=== PATIENT | female | born 1965 | race Caucasian/White ===

== ENCOUNTER → 2017-03-19 | Outpatient (CLI) | payer MEDICARE, OTHER ==
[2015-07-01 13:55] VITALS: BP 130/71
--- NOTE | 2017-03-19 14:55 | RAD ---
DATE: 03/19/2017 EXAM: DIGITAL DIAGNOSTIC BILATERAL HISTORY: Nipple discharge COMPARISON: None. This is a baseline exam This study was interpreted with the benefit of Computerized Aided Detection (CAD). FINDINGS: Breast Density: SCATTERED The breast parenchyma shows scattered fibroglandular densities. Breast parenchyma level B. No dominant mass or suspect group of calcifications is seen in either breast. Occasional small lymph nodes are noted in both axilla. If additional evaluation for nipple discharge is warranted a cholangiogram could be performed. IMPRESSION: Benign findings BI-RADS CATEGORY: 2 BENIGN FINDING(S) RECOMMENDED FOLLOW-UP: 12M 12 MONTH FOLLOW-UP PQRS compliance statement: Patient information was entered into a reminder system with a target due date 03/19/2018 for the next mammogram. Mammography is a sensitive method for finding small breast cancers, but it does not detect them all and is not a substitute for careful clinical examination. A negative mammogram does not negate a clinically suspicious finding and should not result in delay in biopsying a clinically suspicious abnormality. "Our facility is accredited by the [employer] Mammography Program."
== END | disposition home or self-care (01) ==
LOC: MAMMO 13:39
PROVIDERS: ATTEND Family Medicine
DX: N64.52 Nipple discharge (principal); I10 Essential (primary) hypertension; R00.0 Tachycardia, unspecified
CPT/HCPCS: G0204; 77066

== ENCOUNTER 2017-05-12 15:54 | Emergency (ER) | payer MEDICARE, OTHER ==
[~2017-05-12] VITALS: Ht 162.6 cm; Wt 104.3 kg
[2017-05-12 17:46] LABS: BILIRUBIN,URINE NEG (NEG); CLARITY,URINE CLEAR; COLOR,URINE YELLOW; GLUCOSE,URINE NEG (NEG); NITRITE,URINE NEG (NEG); UROBILINOGEN,URINE 0.2 mg/dL (0.2 mg/dL)
--- NOTE | 2017-05-12 17:47 | PHYS DOC ---
Past History Past Medical History: No Pertinent History Past Surgical History: No Surgical History Smoking: Non-smoker Alcohol Use: None Drug Use: None Adult General Chief Complaint Chief Complaint: MULTIPLE COMPLAINTS HPI HPI Patient is a 51 year old female who presents to the emergency department with complaint of stress. Patient was brought to the emergency department by EMS due to aggressive behavior. The patient reportedly was brought back from the [facility] after attending a mental health session. The patient became very upset when her father reportedly was not present at the home. The police department was called for a welfare check as the patient became very upset and verbally aggressive. After speaking with the authorities, the patient asked to be brought to the emergency department as she felt "stressed" and wanted to be checked out. On evaluation, the patient has no complaints at this time. The patient admits that she became very angry when her father was not present. Patient's medical and psychologic history are unknown and patient is a poor historian. The patient does not have any obvious signs of injury and patient denies any thoughts of wanting to hurt herself or anyone else at this time. Review of Systems Review of Systems Constitutional: Denies fever or chills [] Eyes: Denies change in visual acuity, redness, or eye pain [] HENT: Denies nasal congestion or sore throat [] Respiratory: Denies cough or shortness of breath [] Cardiovascular: Denies chest pain or edema [] GI: Denies abdominal pain, nausea, vomiting, bloody stools or diarrhea [] : Denies dysuria or hematuria [] Musculoskeletal: Denies back pain or joint pain [] Integument: Denies rash or skin lesions [] Neurologic: Denies headache, focal weakness or sensory changes [] Allergies Allergies Allergies Coded Allergies Type Severity Reaction Last Updated Verified No Known Drug Allergies 04/21/14 No Physical Exam Physical Exam Constitutional: Alert, obese, afebrile, no acute distress. [] HENT: Normocephalic, atraumatic, bilateral external ears normal, oropharynx moist, no oral exudates, nose normal. [] Eyes: PERRLA, EOMI, conjunctiva normal, no discharge. [] Neck: Normal range of motion, no tenderness, supple, no stridor. [] Cardiovascular:Heart rate regular rhythm, no murmur [] Lungs & Thorax: Bilateral breath sounds clear to auscultation [] Abdomen: Bowel sounds normal, soft, no tenderness, no masses, no pulsatile masses. [] Skin: Warm, dry, no erythema, no rash. [] Back: No tenderness, no CVA tenderness. [] Extremities: No tenderness, no cyanosis, no clubbing, ROM intact, no edema. [] Neurologic: Alert and oriented X 3, normal motor function, normal sensory function, no focal deficits noted. [] Psychologic: Denies suicidal or homicidal ideation, flight of ideas, tangential speech, patient redirectable. [] Current Patient Data Vital Signs Vital Signs Date Time Temp Pulse Resp B/P (MAP) Pulse Ox O2 Delivery O2 Flow Rate FiO2 05/12/17 16:05 98.0 82 18 98 Room Air Lab Results Laboratory Tests Test 05/12/17 17:36 POC Urine HCG, Qualitative hcg negative (Negative) EKG EKG Not performed [] Radiology/Procedures Radiology/Procedures Not performed [] Course & Med Decision Making Course & Med Decision Making Pertinent Labs and Imaging studies reviewed. (See chart for details) The patient was cooperative while in the emergency department. The patient's father was contacted and came to the emergency department. He stated that he was running late at the time the patient was brought back to the home and he apologized for the patient having come to the emergency department. He states that the patient is at her mental baseline and he has no concerns. The patient voices that she feels safe going home with her father at this time. Recommended follow-up with the patient's primary doctor in the next 2-3 days for reevaluation and return to emergency department for any worsening symptoms. Patient's father voiced understanding and in agreement with treatment plan. Dragon Disclaimer Dragon Disclaimer This chart was dictated in whole or in part using Voice Recognition software in a busy, high-work load, and often noisy Emergency Department environment. It may contain unintended and wholly unrecognized errors or omissions. Departure Departure: Impression: Primary Impression: Behavioral disorder Disposition: 01 HOME, SELF-CARE Condition: STABLE Referrals: PEDRO PARDO MD (PCP) Patient Instructions: Stress Additional Instructions: Follow-up with your primary doctor as needed. Return to the emergency department for any worsening symptoms. ZACK MATIAS MD May 12, 2017 17:47
[2017-05-12 17:50] VITALS: BP 136/82
== END 2017-05-12 17:53 | disposition home or self-care (01) ==
LOC: ER 15:54
DX: F91.9 Conduct disorder, unspecified (principal)
CPT/HCPCS: 81003; 81025; 99283

== ENCOUNTER 2017-06-14 14:54 | Emergency (ER) | payer MEDICARE, OTHER ==
[2017-06-14 14:54] VITALS: BP 138/80
--- NOTE | 2017-06-14 17:36 | ED.ADGEN ---
Past History Past Medical History: Anxiety, Depression, Other Past Surgical History: No Surgical History Smoking: Non-smoker Alcohol Use: None Drug Use: None Adult General Chief Complaint Chief Complaint Request for a glass water HPI HPI Patient is a 51-year-old with history of anxiety depression and hallucinations who presented to a local EMS fire station requesting something to drink. The patient was unknown to the EMS workers and the patient was offered a medical screening exam and brought to the emergency department. Patient has a long- standing history of delusions and is seen at [facility] 3 times daily. Patient completed a 4 hour group session earlier today. She is currently upset with her father over remarks regarding her weight loss and she decided to go for a walk when she often requested a class water at a local fire house. Patient denies any other acute symptoms or complaints. No SI or HI. [] Review of Systems Review of Systems ROS as per HPI. Allergies Allergies Allergies Coded Allergies Type Severity Reaction Last Updated Verified No Known Drug Allergies 04/21/14 No Physical Exam Physical Exam Constitutional: Well developed, well nourished, no acute distress, non-toxic appearance. [] HENT: Normocephalic, atraumatic, bilateral external ears normal, oropharynx moist, no oral exudates, nose normal. [] Eyes: PERRLA, EOMI, conjunctiva normal, no discharge. [] Neck: Normal range of motion, no tenderness, supple, no stridor. [] Cardiovascular:Heart rate regular rhythm, no murmur [] Lungs & Thorax: Bilateral breath sounds clear to auscultation [] Abdomen: Bowel sounds normal, soft, no tenderness, no masses, no pulsatile masses. [] Skin: Warm, dry. [] Back: No tenderness, no CVA tenderness. [] Extremities: No tenderness, no cyanosis, no clubbing, ROM intact, no edema. [] Neurologic: Alert and oriented X 2, normal motor function, normal sensory function, no focal deficits noted. [] Psychologic: Affect anxious, hyper-orthodoxy, No SI, HI. [] Current Patient Data Vital Signs Vital Signs Date Time Temp Pulse Resp B/P (MAP) Pulse Ox O2 Delivery O2 Flow Rate FiO2 06/14/17 14:54 98.6 89 20 99 Room Air EKG EKG [] Radiology/Procedures Radiology/Procedures [] Course & Med Decision Making Course & Med Decision Making Pertinent Labs and Imaging studies reviewed. (See chart for details) [[facility] contacted who confirmed she patient's diagnoses which are consistent with current condition. Patient given bottle or water and discharged to father's custody. ] Final Impression Final Impression [1. Encounter for medical screening exam ] Problems: Dragon Disclaimer Dragon Disclaimer This electronic medical record was generated, in whole or in part, using a voice recognition dictation system. AUSTIN POP DO Jun 14, 2017 17:36
== END 2017-06-14 16:00 | disposition home or self-care (01) ==
LOC: ER 14:54
DX: Z00.8 Encounter for other general examination (principal); F41.8 Other specified anxiety disorders
CPT/HCPCS: 99281; 99283

== ENCOUNTER 2019-04-11 11:45 | Emergency (ER) | payer MEDICARE, OTHER ==
[~2019-04-11] VITALS: Ht 162.6 cm; Wt 104.3 kg
--- NOTE | 2019-04-11 12:21 | PHYS DOC ---
Past History Past Medical History: Anxiety, Depression, Other Past Surgical History: No Surgical History Smoking: Non-smoker Alcohol Use: None Drug Use: None Adult General Chief Complaint Chief Complaint: ANKLE PROBLEM HPI HPI Patient is a 53 year old female who presents with right ankle pain. Patient states that she almost fell earlier this morning and felt sudden pain in her right ankle. She thinks that she may have twisted her ankle. States that she had tripped over her pants which caused her to nearly fall. Has not taken any medications for her symptoms. The patient called EMS to come to the emergency Department be evaluated. EMS notes the patient was ambulating independently from her house to the ambulance and bearing full weight on the affected extremity. Patient has history of chronic pain in the right lower extremity and does walk with a cane. States pain is along the inner aspect of the right ankle. Denies falling completely to the ground and denies any other injuries. Review of Systems Review of Systems Constitutional: Denies fever or chills [] Musculoskeletal: Right ankle pain.[] Integument: Denies rash or skin lesions [] Neurologic: Denies headache, focal weakness or sensory changes [] All other systems were reviewed and found to be within normal limits, except as documented in this note. Current Medications Current Medications Current Medications Medications (Trade) Dose Ordered Sig/Fredy Start Time Stop Time Status Last Admin Dose Admin Acetaminophen (Tylenol) 650 mg 1X ONCE 04/11/19 12:15 04/11/19 12:16 UNV Allergies Allergies Allergies Coded Allergies Type Severity Reaction Last Updated Verified No Known Drug Allergies 04/21/14 No Physical Exam Physical Exam Constitutional: Alert, afebrile, disheveled appearance, no acute distress. [] Skin: Warm, dry, no erythema, no rash. [] Extremities: No obvious swelling or deformity of right ankle or lower leg, voluntary guarding of right ankle, displays no tenderness when redirected away from her ankle, range of motion normal, DP and PT pulses 2+ in the right foot. [] Neurologic: Alert and oriented X 3, normal motor function, normal sensory function, no focal deficits noted. [] Current Patient Data Vital Signs Vital Signs Date Time Temp Pulse Resp B/P (MAP) Pulse Ox O2 Delivery O2 Flow Rate FiO2 04/11/19 13:04 98.4 72 16 94 Room Air Lab Results Not performed EKG EKG Not performed[] Radiology/Procedures Radiology/Procedures Not performed[] Course & Med Decision Making Course & Med Decision Making Pertinent Labs and Imaging studies reviewed. (See chart for details) Patient has normal range of motion of the right foot and ankle with normal weightbearing. When patient is watching the examination of her right ankle, she voluntarily guards before full pressure is put on the ankle. When I speak with the patient and apply pressure to the ankle, the patient displays no guarding and no tenderness. Patient is well-known to this emergency department and does have psychiatric history is well-documented. I do not see any obvious external signs of trauma or significant injury. Patient's symptoms may be due to mild sprain. An ankle strap brace was applied to the right ankle. Given Tylenol for pain. Advised to continue Tylenol as needed. Advised to continue ambulation with use of cane and recommended follow-up with primary doctor in 1 week for reevaluation. Advised return to emergency department for any worsening symptoms. Patient was understanding and agreement with treatment plan. Dragon Disclaimer Dragon Disclaimer This electronic medical record was generated, in whole or in part, using a voice recognition dictation system. Departure Departure: Impression: Primary Impression: Right ankle pain Disposition: HOME, SELF-CARE Condition: IMPROVED Referrals: PEDRO PARDO MD (PCP) Patient Instructions: Ankle Pain Additional Instructions: Follow-up with your primary doctor in 1 week for reevaluation. Return to the emergency department for any worsening symptoms. Problem Qualifiers Primary Impression: Right ankle pain Chronicity: acute Qualified Codes: M25.571 - Pain in right ankle and joints of right foot ZACK MATIAS MD Apr 11, 2019 12:21
[2019-04-11] MEDS ORDERED: ACETAMINOPHEN 325 MG TABLET PO ONE (12:30)
[2019-04-11 13:04] VITALS: BP 132/79
== END 2019-04-11 12:40 | disposition home or self-care (01) ==
LOC: ER 11:45
DX: M25.571 Pain in right ankle and joints of right foot (principal); F41.9 Anxiety disorder, unspecified; F32.9 Major depressive disorder, single episode, unspecified; W18.49XA Other slipping, tripping and stumbling without falling, initial encounter; Y93.89 Activity, other specified; Y92.89 Other specified places as the place of occurrence of the external cause; Y99.8 Other external cause status
CPT/HCPCS: 29515; 99283

== ENCOUNTER 2020-11-02 21:03 | Emergency (ER) | payer MEDICARE, OTHER ==
[~2020-11-02] VITALS: Ht 165.1 cm; Wt 100.0 kg
--- NOTE | 2020-11-02 21:05 | PHYS DOC ---
Past History Past Medical History: No Pertinent History Past Surgical History: No Surgical History Smoking: Non-smoker Alcohol Use: None Drug Use: None General Adult HPI: HPI: ".. I was up without my walker.. and I twisted this Lt. knee and ankle again.. I had hurt it before.,.. now the pain really yells.. if I move wrong with this Lt knee and ankle..." Patient is a 55 year old female who presents with above hx and complaints of knee and ankle pain.. Patient has had previous injury to left knee and ankle. Has been instructed to use a walker at all x1 moving about her home or when she is out away from home. Patient distal neurovascular is equal to right leg. Can do straight leg lift with left knee. Cruciate appear to be intact. Marked pain along lateral collateral ligament. Patient has pain in upper ankle and along left inside of malleolus. Foot squeeze is negative. Patient denies other injury at this time. Pt. follows with Dr. Pardo. Review of Systems: Review of Systems: Constitutional: Denies fever or chills Eyes: Denies change in visual acuity HENT: Denies nasal congestion or sore throat Respiratory: Denies cough or shortness of breath Cardiovascular: Denies chest pain or edema GI: Denies abdominal pain, nausea, vomiting, bloody stools or diarrhea : Denies dysuria Musculoskeletal: Complains of left knee and ankle pain Integument: Denies rash Neurologic: Denies headache, focal weakness or sensory changes Endocrine: Denies polyuria or polydipsia Lymphatic: Denies swollen glands Psychiatric: Denies depression or anxiety Family History: Family History: Noncontributory to presentation Current Medications: Current Meds: See nursing for home meds Allergies: Allergies: Allergies Coded Allergies Type Severity Reaction Last Updated Verified No Known Drug Allergies 04/21/14 No Physical Exam: PE: Constitutional: in acute distress, non-toxic appearance. [] HENT: Normocephalic, atraumatic, bilateral external ears normal, oropharynx moist, no oral exudates, nose normal. [] Eyes: PERRLA, EOMI, conjunctiva normal, no discharge. [] Neck: Normal range of motion, no tenderness, supple, no stridor. [] Cardiovascular:Heart rate regular rhythm, no murmur, PMI to the left Lungs & Thorax: Bilateral breath sounds equal apex on auscultation [] Abdomen: Bowel sounds normal, soft, no tenderness, no masses, no pulsatile masses. Obese Skin: Warm, dry, no erythema, no rash. [] Back: No tenderness, no CVA tenderness. [] Extremities: No tenderness, no cyanosis, no clubbing, ROM intact, no edema. [] Except findings in left knee and ankle as per HPI Neurologic: Alert and oriented X 3, limp with ambulation because of pain in left knee and ankle, distal sensation intact, no focal deficits noted. [] Psychologic: Affect anxious, judgement has history of some intellectual delay,, mood normal. [] EKG: EKG: [] Radiology/Procedures: Radiology/Procedures: My interpretation of ankle tibia fib and knee show questionable fracture medial malleolus or displacement or dislocation. Does have findings of degenerative joint disease and spurring. [address] [id number] IMAGING REPORT Signed PATIENT: MIKAL OCONNELL ACCOUNT: [id number] : 1965 LOCATION: ER AGE: 55 SEX: F EXAM STATUS: REG ER ORD. PHYSICIAN: JAN GOOD MD REASON: re- injury - Twisted PROCEDURE: TIBIA FIBULA LEFT EXAM: XR KNEE _4 VIEWS WITH PATELLA_LT, XR LT TIBIA + FIBULA, XR EXAM OF ANKLE_LEFT 3V 11/02/2020 10:40 PM CLINICAL INDICATION: Re-injury, twisted ankle COMPARISON: None FINDINGS: Left ankle: There is an osseous fragment projecting over the lateral malleolus, suspicious for a fracture of the anterolateral edge of the tibial plafond. There is also subtle irregularity of the medial malleolus which could be a possible nondisplaced fracture. There is moderate degenerative joint disease of the tibiotalar joint with mild narrowing, subchondral cysts and sclerosis, and small osteophytes. The talar dome is intact there is circumferential soft tissue swelling about the ankle, greatest medially. Left tibia and fibula: Distal tibia as above. No other fracture. Alignment at the ankle and knee is maintained. No focal soft tissue abnormality. Left knee: No acute fracture. Alignment is normal. Joint spaces are maintained. There are small tricompartmental osteophytes. No joint effusion or soft tissue abnormality. IMPRESSION: 1. Suspected mildly displaced fracture of the anterolateral edge of the tibial plafond (Chaput fracture). 2. Slight irregularity of the medial malleolus. Nondisplaced fracture possible. 3. Consider CT to further evaluate ankle. 4. No other fracture in the tibia or fibula, or knee. Electronically signed by: Samantha Mckeon MD (11/02/2020 11:27 PM) [id number] DICTATED AND SIGNED BY: SAMANTHA MCKEON MD DATE: 11/02/20 [id number] CC: PEDRO PARDO MD; JAN GOOD MD ~MTH0 0 [] Heart Score: Risk Factors: Risk Factors: DM, Current or recent (<one month) smoker, HTN, HLP, family history of CAD, obesity. Risk Scores: Score 0 - 3: 2.5% MACE over next 6 weeks - Discharge Home Score 4 - 6: 20.3% MACE over next 6 weeks - Admit for Clinical Observation Score 7 - 10: 72.7% MACE over next 6 weeks - Early Invasive Strategies Course & Med Decision Making: Course & Med Decision Making Pertinent Labs and Imaging studies reviewed. (See chart for details) Ice, elevation, rest and ice packs as needed. Wear Gustavo wrap. Follow-up with Dr. Yun. Take Tylenol and ibuprofen for pain. For marked pain may take Vicoprofen. Must use walker and crutches when ambulating. Distal neurovascular intact after application Gustavo wrap and splint. Use crutches. Follow up with orthro. [phone]. . Impression: 1. Left knee-ligament strain 2. Ankle sprain 3. DJD- arthritis 4. Ankle Fracture [] Dragon Disclaimer: Dragon Disclaimer: This electronic medical record was generated, in whole or in part, using a voice recognition dictation system. Departure Departure: Referrals: PEDRO PARDO MD (PCP) Scripts Hydrocodone/Ibuprofen (HYDROCODONE-IBUPROFEN 7.5-200 ) 1 Each Tablet 1 TAB PO PRN Q6HRS PRN for PAIN, #30 TAB 0 Refills Prov: JAN GOOD MD 11/02/20 Dragon Disclaimer This chart was dictated in whole or in part using Voice Recognition software in a busy, high-work load, and often noisy Emergency Department environment. It may contain unintended and wholly unrecognized errors or omissions. JAN GOOD MD Nov 02, 2020 21:05
[2020-11-02 21:36] VITALS: BP 139/76
[2020-11-02] MEDS ORDERED: MORPHINE SULFATE 10 MG/ML SYRINGE. SQ ONE (22:00)
[2020-11-02] MEDS ORDERED: KETOROLAC 60 MG/2 ML VIAL. IM ONE (22:00)
[2020-11-02] MEDS ORDERED: HYDR-1179 PO (22:17)
--- NOTE | 2020-11-02 23:30 | RAD ---
EXAM: XR KNEE _4 VIEWS WITH PATELLA_LT, XR LT TIBIA + FIBULA, XR EXAM OF ANKLE_LEFT 3V 11/02/2020 10: 40 PM CLINICAL INDICATION: Re-injury, twisted ankle COMPARISON: None FINDINGS: Left ankle: There is an osseous fragment projecting over the lateral malleolus, suspicious for a frac ture of the anterolateral edge of the tibial plafond. There is also subtle irregularity of the medial malleolus which could be a possible nondisplaced fracture. There is moderate degenerative joint dise ase of the tibiotalar joint with mild narrowing, subchondral cysts and sclerosis, and small osteophyt es. The talar dome is intact there is circumferential soft tissue swelling about the ankle, greatest medially. Left tibia and fibula: Distal tibia as above. No other fracture. Alignment at the ankle and knee is m aintained. No focal soft tissue abnormality. Left knee: No acute fracture. Alignment is normal. Joint spaces are maintained. There are small trico mpartmental osteophytes. No joint effusion or soft tissue abnormality. IMPRESSION: 1. Suspected mildly displaced fracture of the anterolateral edge of the tibial plafond (Chaput fractu re). 2. Slight irregularity of the medial malleolus. Nondisplaced fracture possible. 3. Consider CT to further evaluate ankle. 4. No other fracture in the tibia or fibula, or knee. Electronically signed by: Samantha Mckeon MD (11/02/2020 11:27 PM) [id number]
== END 2020-11-03 00:15 | disposition home or self-care (01) ==
LOC: ER 21:03
DX: S82.52XA Displaced fracture of medial malleolus of left tibia, initial encounter for closed fracture (principal); S93.402A Sprain of unspecified ligament of left ankle, initial encounter; M19.90 Unspecified osteoarthritis, unspecified site; X50.9XXA Other and unspecified overexertion or strenuous movements or postures, initial encounter; Y93.89 Activity, other specified; Y92.89 Other specified places as the place of occurrence of the external cause; Y99.8 Other external cause status
CPT/HCPCS: 29515; 73564; 73590; 73610; 96372; 99284; J1885; J2270

== ENCOUNTER 2021-03-08 14:20 | Emergency (ER) | payer MEDICARE, OTHER ==
[~2021-03-08] VITALS: Ht 165.1 cm; Wt 106.8 kg
[~2021-03-08 14:20] MED LIST: HYDR-1179 PO
[2021-03-08 16:17] LABS: BILIRUBIN,URINE NEG (NEG); CLARITY,URINE HAZY; COLOR,URINE YELLOW; GLUCOSE,URINE 100 mg/dL (NEG); NITRITE,URINE NEG (NEG)
[2021-03-08 16:21] LABS: BACTERIA,URINE FEW /HPF (0-FEW); SQUAMOUS EPITHELIAL CELL,UR FEW /LPF
[2021-03-08] MEDS ORDERED: PHEN-318 PO (17:00)
[2021-03-08] MEDS ORDERED: SULF1TAB24 PO (17:00)
--- NOTE | 2021-03-08 17:01 | PHYS DOC ---
Past History Past Medical History: UTI Past Surgical History: No Surgical History Smoking: Non-smoker Alcohol Use: None Drug Use: None General Adult EDM: Chief Complaint: ABDOMINAL PAIN HPI: HPI: Patient is a 55-year-old female presents with dysuria and frequency symptoms that started today. Patient denies flank pain, fevers. Denies abdominal pain. Patient states pain is worse with urination. Patient has a history of UTIs. Review of Systems: Review of Systems: Constitutional: Denies fever or chills Eyes: Denies change in visual acuity HENT: Denies nasal congestion or sore throat Respiratory: Denies cough or shortness of breath Cardiovascular: Denies chest pain or edema GI: Denies abdominal pain, nausea, vomiting, bloody stools or diarrhea : Reports dysuria and frequency Musculoskeletal: Denies back pain or joint pain Integument: Denies rash Neurologic: Denies headache, focal weakness or sensory changes Endocrine: Denies polyuria or polydipsia Lymphatic: Denies swollen glands Psychiatric: Denies depression or anxiety Allergies: Allergies: Allergies Coded Allergies Type Severity Reaction Last Updated Verified No Known Drug Allergies 11/02/20 No Physical Exam: PE: Constitutional: Well developed, well nourished, no acute distress, non-toxic appearance. [] HENT: Normocephalic, atraumatic, bilateral external ears normal, oropharynx moist, no oral exudates, nose normal. [] Eyes: PERRLA, EOMI, conjunctiva normal, no discharge. [] Neck: Normal range of motion, no tenderness, supple, no stridor. [] Cardiovascular:Heart rate regular rhythm, no murmur [] Lungs & Thorax: Bilateral breath sounds clear to auscultation [] Abdomen: Bowel sounds normal, soft, no tenderness, no masses, no pulsatile masses. [] Skin: Warm, dry, no erythema, no rash. [] Back: No tenderness, no CVA tenderness. [] Extremities: No tenderness, no cyanosis, no clubbing, ROM intact, no edema. [] Neurologic: Alert and oriented X 3, normal motor function, normal sensory fun ction, no focal deficits noted. [] Psychologic: Affect normal, judgement normal, mood normal. [] Current Patient Data: Labs: Laboratory Tests Test 03/08/21 15:15 Urine Collection Type Unknown Urine Color Yellow Urine Clarity Hazy Urine pH 7.0 Urine Specific [place] 1.020 Urine Protein 30 mg/dl (NEG-TRACE) Urine Glucose (UA) 100 mg/dL (NEG) Urine Ketones (Stick) Trace mg/dL (NEG) Urine Blood Small (NEG) Urine Nitrite Neg (NEG) Urine Bilirubin Neg (NEG) Urine Urobilinogen Dipstick 1.0 mg/dL (0.2 mg/dL) Urine Leukocyte Esterase Small (NEG) Urine RBC 1-2 /HPF (0-2) Urine WBC 5-10 /HPF (0-4) Urine Squamous Epithelial Cells Few /LPF Urine Bacteria Few /HPF (0-FEW) Vital Signs: Vital Signs Date Time Temp Pulse Resp B/P (MAP) Pulse Ox O2 Delivery O2 Flow Rate FiO2 03/08/21 15:00 100.4 106 20 141/86 (104) 97 Room Air EKG: EKG: [] Radiology/Procedures: Radiology/Procedures: [] Heart Score: C/O Chest Pain: No Risk Factors: Risk Factors: DM, Current or recent (<one month) smoker, HTN, HLP, family history of CAD, obesity. Risk Scores: Score 0 - 3: 2.5% MACE over next 6 weeks - Discharge Home Score 4 - 6: 20.3% MACE over next 6 weeks - Admit for Clinical Observation Score 7 - 10: 72.7% MACE over next 6 weeks - Early Invasive Strategies Course & Med Decision Making: Course & Med Decision Making Pertinent Labs and Imaging studies reviewed. (See chart for details) [] 55-year-old female presents with dysuria and frequency. Patient given prescription for Bactrim and prescription for Pyridium to help with symptoms. Patient's encouraged to push fluids. Dragon Disclaimer: Dragon Disclaimer: This electronic medical record was generated, in whole or in part, using a voice recognition dictation system. Departure Departure: Impression: Primary Impression: UTI (urinary tract infection) Qualified Codes: N30.00 - Acute cystitis without hematuria Disposition: HOME / SELF CARE / HOMELESS Condition: STABLE Referrals: PEDRO PARDO MD (PCP) Patient Instructions: Urinary Tract Infection Additional Instructions: You were seen in the emergency room for burning with urination and also frequency. I am sending you home with a prescription for Bactrim to help with your infection. Writing a prescription for Pyridium which will help with the symptoms. Try and increase your water intake. Please return to the emergency room with worsening symptoms or concerns. EMERGENCY DEPARTMENT GENERAL DISCHARGE INSTRUCTIONS Thank you for coming to [facility] (ED) today and trusting us with you care. We trust that you had a positivie experience in our Emergency Department. If you wish to speak to the department management, you may call the director at [phone]. YOUR FOLLOW UP INSTRUCTIONS ARE FOLLOWS: 1. Do you have a private Doctor? If you do not have a private doctor, please ask for a resource list of physicians or clinics that may be able to assist you with follow up care. 2. The Emergency Physician has interpreted your x-rays. The X-Ray specialist will also review them. If there is a change in the findings, you will be notified in 48 hours when at all possible. 3. A lab test or culture has been done, your results will be reviewed and you will be notified if you need a change in treatment. ADDITIONAL INSTRUCTIONS AND INFORMATION: 1. Your care today has been supervised by a physician who is specially trained in emergency care. Many problems require more than one evaluation for a complete diagnosis and treatment. We recommend that you schedule your follow up appointment as recommended to ensure complete treatment of you illness or injury. If you are unable to obtain follow up care and continue to have a problem, or if your condition worsens, we recommend that you return to the ED. 2. We are not able to safely determine your condition over the phone nor are we able to give sound medical advice over the phone. For these safety reasons, if you call for medical advice we will ask you to come to the ED for further evaluation. 3. If you have any questions regarding these discharge instructions please call the ED at [phone]. SAFETY INFORMATION: In the interest of safety, wellness, and injury prevention; we encourage you to wear your sealbelt, if you smoke; quite smoking, and we encourage family to use a protective helmet for bicycling and other sporting events that present an increased risk for head injury. IF YOUR SYMPTOMS WORSEN OR NEW SYMPTOMS DEVELOP, OR YOU HAVE CONCERNS ABOUT YOUR CONDITION; OR IF YOUR CONDITION WORSENS WHILE YOU ARE WAITING FOR YOUR FOLLOW UP APPOINTMENT; EITHER CONTACT YOUR PRIMARY CARE DOCTOR, THE PHYSICIAN WHOSE NAME AND NUMBER YOU WERE GIVEN, OR RETURN TO THE ED IMMEDIATELY. Scripts Phenazopyridine Hcl (PYRIDIUM) 200 Mg Tablet 1 TAB PO TID for urinary discomfort for 3 Days, #9 TAB 0 Refills Prov: MORENO CAMPO APRN 03/08/21 Sulfamethoxazole/Trimethoprim (BACTRIM DS TABLET) 1 Each Tablet 1 EACH PO BID for uti for 3 Days, #6 TAB Prov: MORENO CAMPO APRN 03/08/21 MORENO CAMPO APRN March 08, 2021 17:01
[2021-03-08 17:20] VITALS: BP 136/88
== END 2021-03-08 17:25 | disposition home or self-care (01) ==
LOC: ER 14:20
DX: N39.0 Urinary tract infection, site not specified (principal)
CPT/HCPCS: 81001; 87086; 99283-25

== ENCOUNTER 2021-03-30 07:31 | Emergency (ER) | payer MEDICARE, OTHER ==
[~2021-03-30] VITALS: Ht 165.1 cm; Wt 108.9 kg
[2021-03-30 07:31] VITALS: BP 129/82
[~2021-03-30 07:31] MED LIST changes: +PHEN-318 PO; +SULF1TAB24 PO
[2021-03-30] MEDS ORDERED: SULF1TAB24 PO (08:26)
--- NOTE | 2021-03-30 08:26 | PHYS DOC ---
Past History Past Medical History: UTI Past Surgical History: No Surgical History Smoking: Non-smoker Alcohol Use: None Drug Use: None Adult General Chief Complaint Chief Complaint: RECTAL BLEED HPI HPI Patient is a [age] year old [sex] who presents with [] Review of Systems Review of Systems Fourteen body systems of review of systems have been reviewed. See HPI for pertinent positives and negative responses, other jackson all other systems are negative, non-pertinent or non-contributory Allergies Allergies Allergies Coded Allergies Type Severity Reaction Last Updated Verified No Known Drug Allergies 11/02/20 No Physical Exam Physical Exam Constitutional: Well developed, well nourished, no acute distress, non-toxic appearance. HENT: Normocephalic, atraumatic, bilateral external ears normal, oropharynx moist, no oral exudates, nose normal. Eyes: PERRLA, EOMI, conjunctiva normal, no discharge. Neck: Normal range of motion, no tenderness, supple, no stridor. Cardiovascular: Heart rate regular, sinus rhythm, no murmurs rubs or gallops Lungs & Thorax: Bilateral breath sounds clear to auscultation Abdomen: Bowel sounds normal, soft, no tenderness, no masses, no pulsatile masses. Nonsurgical abdomen, no peritoneal signs Skin: Warm, dry, no erythema, no rash. Back: No tenderness, no CVA tenderness. Extremities: No tenderness, no cyanosis, no clubbing, ROM intact, no edema. Neurologic: Alert and oriented X 3, grossly normal motor & sensory function, no focal deficits noted. Psychologic: Affect normal, judgement normal, mood normal. Current Patient Data Vital Signs Vital Signs Date Time Temp Pulse Resp B/P (MAP) Pulse Ox O2 Delivery O2 Flow Rate FiO2 03/30/21 07:31 98.7 92 16 129/82 (98) 99 Room Air Lab Results Current Medications Medications (Trade) Dose Ordered Sig/Fredy Route PRN Reason Start Time Stop Time Status Last Admin Dose Admin Trimethoprim/ Sulfamethoxazole (Bactrim Ds) 1 tab 1X ONCE PO 03/30/21 08:30 03/30/21 08:32 DC 03/30/21 08:35 Trimethoprim/ Sulfamethoxazole (Bactrim Ds) 1 tab STK-MED ONCE PO 03/30/21 08:32 03/30/21 08:32 DC EKG EKG [] Radiology/Procedures Radiology/Procedures [] Heart Score Risk Factors: Risk Factors: DM, Current or recent (<one month) smoker, HTN, HLP, family history of CAD, obesity. Risk Scores: Risk Factors: DM, Current or recent (<one month) smoker, HTN, HLP, family history of CAD, obesity. Course & Med Decision Making Course & Med Decision Making Pertinent Labs and Imaging studies reviewed. (See chart for details) [] Dragon Disclaimer Dragon Disclaimer This electronic medical record was generated, in whole or in part, using a voice recognition dictation system. Departure Departure: Impression: Primary Impression: Abscess and cellulitis of gluteal region Disposition: HOME / SELF CARE / HOMELESS Condition: STABLE Referrals: PEDRO PARDO MD (PCP) Patient Instructions: Abscess, Care After Additional Instructions: You were evaluated in the Emergency Department for an abscess. Your abscess was incised and drained in the Emergency Department. You should change the dressing every 24 hours. Please keep the areas surrounding the abscess clean and dry. Take the antibiotics prescribed to you in full as directed. As discussed, please contact your primary care physician first thing Wednesday morning to review ER visit today and need for close outpatient follow-up for repeat evaluation. Return to the Emergency Department if you experience worsening pain, persistent fevers greater than 100.4, an increase in area of redness, increased tenderness/warmth around the abscess, foul smelling discharge from the abscess, or any other concerning symptoms. Scripts Sulfamethoxazole/Trimethoprim (BACTRIM DS TABLET) 1 Each Tablet 1 TAB PO BID for ABSCESS for 5 Days, #10 TAB 0 Refills Prov: MARIO ASHRAF DO 03/30/21 MARIO ASHRAF DO Mar 30, 2021 08:26
[2021-03-30] MEDS ORDERED: SMZ/TMP 800/160MG TABLET. PO ONE ×2 (08:30→08:32)
== END 2021-03-30 08:40 | disposition home or self-care (01) ==
LOC: ER 07:31
DX: L02.31 Cutaneous abscess of buttock (principal); L03.317 Cellulitis of buttock; Z87.440 Personal history of urinary (tract) infections
CPT/HCPCS: 99283

== ENCOUNTER 2021-07-27 10:21 | Emergency (ER) | payer MEDICARE, OTHER ==
[~2021-07-27] VITALS: Ht 165.1 cm; Wt 119.5 kg
--- NOTE | 2021-07-27 11:42 | PHYS DOC ---
Past History Past Medical History: UTI Past Surgical History: No Surgical History Smoking: Non-smoker Alcohol Use: None Drug Use: None General Adult EDM: Chief Complaint: MECHANICAL FALL HPI: HPI: Patient is a 56-year-old female who presents after a fall. Patient states "I fell down on my knees and I have had pain on both knees". Denies hitting head or loss of consciousness. No other complaints. Denies take anything for pain prior to arrival. Review of Systems: Review of Systems: ROS At least 10 ROS systems have been reviewed and are negative except as documented in the HPI. General: Negative except as outlined in HPI above. Skin: Negative except as outlined in HPI above. HEENT: Negative except as outlined in HPI above. Neck: Negative except as outlined in HPI above. Respiratory: Negative except as outlined in HPI above.. Cardiovascular: Negative except as outlined in HPI above. Abdomen: Negative except as outlined in HPI above. : Negative except as outlined in HPI above. Back/MSK: Negative except as outlined in HPI above. Neuro: Negative except as outlined in HPI above. Psych: Negative except as outlined in HPI above. Allergies: Allergies: Allergies Coded Allergies Type Severity Reaction Last Updated Verified No Known Drug Allergies 11/02/20 No Physical Exam: PE: Constitutional: Well developed, well nourished, no acute distress, non-toxic appearance. [] HENT: Normocephalic, atraumatic, bilateral external ears normal, oropharynx moist, no oral exudates, nose normal. [] Eyes: PERRLA, EOMI, conjunctiva normal, no discharge. [] Neck: Normal range of motion, no tenderness, supple, no stridor. [] Cardiovascular:Heart rate regular rhythm, no murmur [] Lungs & Thorax: Bilateral breath sounds clear to auscultation [] Abdomen: Bowel sounds normal, soft, no tenderness, no masses, no pulsatile masses. [] Skin: Warm, dry, no erythema, no rash. [] Back: No tenderness, no CVA tenderness. [] Extremities: Bilateral knee tenderness, no cyanosis, no clubbing, ROM intact, no edema. [] Neurologic: Alert and oriented X 3, normal motor function, normal sensory function, no focal deficits noted. [] Psychologic: Affect normal, judgement normal, mood normal. [] Current Patient Data: Labs: Laboratory Tests Test 07/27/21 11:20 POC Urine HCG, Qualitative hcg negative (Negative) Vital Signs: Vital Signs Date Time Temp Pulse Resp B/P (MAP) Pulse Ox O2 Delivery O2 Flow Rate FiO2 07/27/21 10:54 98.2 108 16 150/77 (101) 99 EKG: EKG: [] Radiology/Procedures: Radiology/Procedures: [] EXAM: Bilateral knees, 3 views. HISTORY: Fall. COMPARISON: 11/02/2020 FINDINGS: 3 views of both knees are obtained. There is mild bilateral proximal internal spurring. There is a small left knee joint loose body. There may be a small right knee effusion, difficult to confirm given oblique lateral positioning. IMPRESSION: 1. Mild tricompartmental osteoarthritis of both knees with possible small right knee effusion and left knee joint loose body. 2. No acute osseous finding. Electronically signed by: Amy Banerjee MD (07/27/2021 12:20 PM) [id number] Heart Score: C/O Chest Pain: No Risk Factors: Risk Factors: DM, Current or recent (<one month) smoker, HTN, HLP, family history of CAD, obesity. Risk Scores: Score 0 - 3: 2.5% MACE over next 6 weeks - Discharge Home Score 4 - 6: 20.3% MACE over next 6 weeks - Admit for Clinical Observation Score 7 - 10: 72.7% MACE over next 6 weeks - Early Invasive Strategies Course & Med Decision Making: Course & Med Decision Making Pertinent Labs and Imaging studies reviewed. (See chart for details) [] 56-year-old female presents after a fall. Patient states that she has pain to bilateral knees. Bilateral knee x-rays ordered to rule out fracture. 600 mg of Motrin given for pain. UA ordered to rule out UTI. Urine negative. UA is negative for infection. Bilateral knee x-rays negative for fracture. Patient given rice instructions. Advised patient to take Motrin and Tylenol at home for discomfort. Follow-up with PCP in the next 2 to 3 days. [place] Disclaimer: Paige Disclaimer: This electronic medical record was generated, in whole or in part, using a voice recognition dictation system. Departure Departure: Impression: Primary Impression: Knee pain, bilateral Qualified Codes: M25.561 - Pain in right knee; M25.562 - Pain in left knee Additional Impression: Fall Qualified Codes: W19.XXXA - Unspecified fall, initial encounter Disposition: HOME / SELF CARE / HOMELESS Condition: STABLE Referrals: PEDRO PARDO MD (PCP) Patient Instructions: Knee Pain, [id number], RICE - Routine Care for Injuries, Flaz-oc-Cula Additional Instructions: You were seen in the emergency room for bilateral knee pain after a fall. X- rays were negative for fracture. Rest, use ice, elevate to help with pain. Ibuprofen and Tylenol at home. Follow-up with PCP in the next 2 to 3 days if pain continues. Return to the emergency room with worsening symptoms or concerns EMERGENCY DEPARTMENT GENERAL DISCHARGE INSTRUCTIONS Thank you for coming to [facility] (ED) today and trusting us with you care. We trust that you had a positivie experience in our Emergency Department. If you wish to speak to the department management, you may call the director at [phone]. YOUR FOLLOW UP INSTRUCTIONS ARE FOLLOWS: 1. Do you have a private Doctor? If you do not have a private doctor, please ask for a resource list of physicians or clinics that may be able to assist you with follow up care. 2. The Emergency Physician has interpreted your x-rays. The X-Ray specialist will also review them. If there is a change in the findings, you will be notified in 48 hours when at all possible. 3. A lab test or culture has been done, your results will be reviewed and you w ill be notified if you need a change in treatment. ADDITIONAL INSTRUCTIONS AND INFORMATION: 1. Your care today has been supervised by a physician who is specially trained in emergency care. Many problems require more than one evaluation for a complete diagnosis and treatment. We recommend that you schedule your follow up appointment as recommended to ensure complete treatment of you illness or injury. If you are unable to obtain follow up care and continue to have a problem, or if your condition worsens, we recommend that you return to the ED. 2. We are not able to safely determine your condition over the phone nor are we able to give sound medical advice over the phone. For these safety reasons, if you call for medical advice we will ask you to come to the ED for further evaluation. 3. If you have any questions regarding these discharge instructions please call the ED at [phone]. SAFETY INFORMATION: In the interest of safety, wellness, and injury prevention; we encourage you to wear your sealbelt, if you smoke; quite smoking, and we encourage family to use a protective helmet for bicycling and other sporting events that present an increased risk for head injury. IF YOUR SYMPTOMS WORSEN OR NEW SYMPTOMS DEVELOP, OR YOU HAVE CONCERNS ABOUT YOUR CONDITION; OR IF YOUR CONDITION WORSENS WHILE YOU ARE WAITING FOR YOUR FOLLOW UP APPOINTMENT; EITHER CONTACT YOUR PRIMARY CARE DOCTOR, THE PHYSICIAN WHOSE NAME AND NUMBER YOU WERE GIVEN, OR RETURN TO THE ED IMMEDIATELY. MORENO CAMPO APRN Jul 27, 2021 11:42
[2021-07-27] MEDS ORDERED: IBUPROFEN 600 MG TABLET. PO ONE (11:45)
--- NOTE | 2021-07-27 12:22 | RAD ---
EXAM: Bilateral knees, 3 views. HISTORY: Fall. COMPARISON: 11/02/2020 FINDINGS: 3 views of both knees are obtained. There is mild bilateral proximal internal spurring. The re is a small left knee joint loose body. There may be a small right knee effusion, difficult to conf irm given oblique lateral positioning. IMPRESSION: 1. Mild tricompartmental osteoarthritis of both knees with possible small right knee effusion and lef t knee joint loose body. 2. No acute osseous finding. Electronically signed by: Amy Banerjee MD (07/27/2021 12:20 PM) [id number]
[2021-07-27 12:56] LABS: BILIRUBIN,URINE NEG (NEG); CLARITY,URINE CLEAR; COLOR,URINE YELLOW; GLUCOSE,URINE >=1000 mg/dL (NEG)
[2021-07-27 12:57] LABS: BACTERIA,URINE 0 /HPF (0-FEW); NITRITE,URINE NEG (NEG); SQUAMOUS EPITHELIAL CELL,UR FEW /LPF; UROBILINOGEN,URINE 0.2 mg/dL (0.2 mg/dL)
[2021-07-27 13:55] VITALS: BP 137/80
== END 2021-07-27 13:55 | disposition home or self-care (01) ==
LOC: ER 10:21
DX: M25.561 Pain in right knee (principal); M25.562 Pain in left knee; W19.XXXA Unspecified fall, initial encounter; Y93.89 Activity, other specified; Y92.89 Other specified places as the place of occurrence of the external cause; Y99.8 Other external cause status
CPT/HCPCS: 81001; 81025; 99284; 73564-50

== ENCOUNTER 2021-09-03 17:35 | Emergency (ER) | payer MEDICARE, OTHER ==
[~2021-09-03] VITALS: Ht 165.1 cm; Wt 119.5 kg
--- NOTE | 2021-09-03 18:30 | PHYS DOC ---
Past History Past Medical History: UTI Past Surgical History: No Surgical History Smoking: Non-smoker Alcohol Use: None Drug Use: None Adult General HPI HPI Patient is a 56-year-old female not on any anticoagulation presents after a fall that she sustained at home 2 days ago, tripping and falling in her house and landing on her right side/right knee. States she is having some pain up around her right shoulder, right knee and right ankle, 6 out of 10, dull and achy in nature with no radiation. States she is able to sit, stand and walk without issue. Denies any numbness/weakness/tingling. Denies any loss of consciousness, headache, change in vision, neck pain, numbness/weakness/tingling. Denies any trouble making urine or stool. Review of Systems Review of Systems Review of systems otherwise unremarkable except noted in HPI Allergies Allergies Allergies Coded Allergies Type Severity Reaction Last Updated Verified No Known Drug Allergies 11/02/20 No Physical Exam Physical Exam Constitutional: Well developed, well nourished, no acute distress, non-toxic appearance. [] HENT: Normocephalic, atraumatic, bilateral external ears normal, no hemotympanum, oropharynx moist, no oral exudates, nose normal. [] Eyes: conjunctiva normal, no discharge. [] Neck: Normal range of motion, no tenderness, Cardiovascular:Heart rate regular rhythm, no murmur [] Lungs & Thorax: Bilateral breath sounds clear to auscultation [] Abdomen: soft, no tenderness, no masses, no pulsatile masses. [] Skin: Warm, dry, no erythema, no rash. [] Back: No midline repair spinal muscle tenderness, no CVA tenderness. [] Extremities: Mild tenderness on passive and active range of motion of right shoulder, right knee and right ankle with no obvious bruising, deformities, neurovascular exam intact no cyanosis, no clubbing, no edema. [] Neurologic: Alert and oriented X 3, able to sit, stand and walk without issue, no focal deficits noted. [] Psychologic: Affect normal, judgement normal, mood normal. [] EKG EKG [] Radiology/Procedures Radiology/Procedures [] Heart Score C/O Chest Pain: No Risk Factors: Risk Factors: DM, Current or recent (<one month) smoker, HTN, HLP, family history of CAD, obesity. Risk Scores: Risk Factors: DM, Current or recent (<one month) smoker, HTN, HLP, family history of CAD, obesity. Course & Med Decision Making Course & Med Decision Making Patient is a 56-year-old female presents after falling with right shoulder, knee and ankle pain Vital signs notable for sinus tachycardia initially which resolved in the ED. Physical exam noted above. Given Tylenol and ice pack. Imaging with no acute osseous abnormalities. Discussed all findings with patient. Discussed symptom management at home. Advised to follow-up in the morning with primary care physician. Gave return precautions to the ED. Patient grateful, verbalized understanding and agreed with plan of discharge. [] Dragon Disclaimer Dragon Disclaimer This electronic medical record was generated, in whole or in part, using a voice recognition dictation system. Departure Departure: Impression: Primary Impression: Right shoulder pain Additional Impressions: Right knee pain Right ankle pain Disposition: HOME / SELF CARE / HOMELESS Condition: GOOD Referrals: PEDRO PARDO MD (PCP) Patient Instructions: RICE - Routine Care for Injuries Additional Instructions: Thank you for coming into the emergency department tonight and allowing us to take care of you. Please read the attached information carefully to go back over some of the things we discussed. Please continue a Tylenol, ibuprofen and ice regimen as tolerated and discussed. Please follow-up in the morning with your primary care physician to discuss your ED visit and set up a follow-up as discussed. Please come back with new or concerning symptoms as we discussed. Problem Qualifiers MIAN CARDOZA MD Sep 03, 2021 18:30
[2021-09-03 18:31] VITALS: BP 137/80
[2021-09-03] MEDS ORDERED: ACETAMINOPHEN 500 MG TABLET PO ONE (19:00)
--- NOTE | 2021-09-03 20:28 | RAD ---
EXAM: Right knee 3 views. 2. Right ankle 3 views. HISTORY: Fall, pain. COMPARISON: 07/27/2021. FINDINGS: An osseous excrescence along the lateral aspect of the patella measures 1.8 x 1.0 cm and ma y reflect a developmental variant or a benign osteochondroma. No fractures are appreciated at the right knee. Small osteophytes are noted along all 3 compartments. Joint spaces and alignment are maintained. There is no joint effusion. There is diffuse subcutaneous edema throughout the visualized leg. No fractures are appreciated at the right ankle. Joint spaces and alignment are maintained. An access ory ossicle is noted along the dorsal of the talus. Subcutaneous edema is noted throughout the ankle and along the forefoot. IMPRESSION: 1. No fracture. 2. Diffuse subcutaneous edema. Correlate for systemic or regional edematous process is. 3. 1.8 cm osteochondroma versus developmental variant along the lateral aspect of the patella. 4. Mild tricompartmental osteoarthritis of the right knee. Electronically signed by: Colleen Ramachandran MD (09/03/2021 8:26 PM) [facility]
--- NOTE | 2021-09-03 20:29 | RAD ---
EXAM: 1. Chest one view. 2. Right shoulder 3 views. HISTORY: Fall, pain. COMPARISON: 07/01/2015. FINDINGS: There are no confluent infiltrates. There is no pneumothorax or pleural effusion. The heart is not enlarged. No fractures are appreciated at the right shoulder. Acromioclavicular and glenohumeral joint spaces a nd alignment are maintained. IMPRESSION: 1. No confluent infiltrates. 2. No fracture or malalignment. Electronically signed by: Colleen Ramachandran MD (09/03/2021 8:27 PM) [facility]
--- NOTE | 2021-09-03 20:29 | RAD ---
EXAM: 1. Chest one view. 2. Right shoulder 3 views. HISTORY: Fall, pain. COMPARISON: 07/01/2015. FINDINGS: There are no confluent infiltrates. There is no pneumothorax or pleural effusion. The heart is not enlarged. No fractures are appreciated at the right shoulder. Acromioclavicular and glenohumeral joint spaces a nd alignment are maintained. IMPRESSION: 1. No confluent infiltrates. 2. No fracture or malalignment. Electronically signed by: Colleen Ramachandran MD (09/03/2021 8:27 PM) [facility]
== END 2021-09-03 21:05 | disposition home or self-care (01) ==
LOC: ER 17:35
DX: M25.511 Pain in right shoulder (principal); M25.561 Pain in right knee; M25.571 Pain in right ankle and joints of right foot; Z87.440 Personal history of urinary (tract) infections; W01.0XXA Fall on same level from slipping, tripping and stumbling without subsequent striking against object, initial encounter; Y93.89 Activity, other specified; Y92.89 Other specified places as the place of occurrence of the external cause; Y99.8 Other external cause status
CPT/HCPCS: 29125; 71045; 73030; 73562; 73610; 99284

== ENCOUNTER → 2021-09-18 | Outpatient (CLI) | payer MEDICARE, OTHER ==
[2021-09-03 18:31] VITALS: BP 137/80
--- NOTE | 2021-09-18 14:44 | RAD ---
EXAMINATION: US BILATERAL LOWEREXTREMITY VENOUS DOPPLER (LOWER EXTREMITY VENOUS ULTRASOUND) CLINICAL HISTORY: VENOUS INSUFFICIENCY, WOUNDS TECHNIQUE: Sonographic grayscale images obtained of the bilateral lower extremity deep venous systems with color flow Doppler, compression, and augmentation techniques as indicated. Images obtained and stored in a permanent archive. COMPARISON: None FINDINGS: RIGHT: No evidence of absent flow or incompressibility within the common femoral vein, femoral vein, or popl iteal vein. Calf veins poorly visualized. LEFT: No evidence of absent flow or incompressibility within the common femoral vein, femoral vein, or popl iteal vein. Calf veins poorly visualized. IMPRESSION: No evidence of bilateral lower extremity DVT. Bilateral calf veins poorly visualized. Electronically signed by: Dimitris Gregory DO (09/18/2021 2:41 PM) [id number]
== END ==
LOC: US 12:30
PROVIDERS: ATTEND Family Medicine
DX: I87.2 Venous insufficiency (chronic) (peripheral) (principal)
CPT/HCPCS: 93970

== ENCOUNTER 2021-09-27 20:21 | Emergency (ER) | payer MEDICARE, OTHER ==
[~2021-09-27] VITALS: Ht 162.6 cm; Wt 116.9 kg
[2021-09-27 21:30] VITALS: BP 115/83
[2021-09-27] MEDS ORDERED: ACETAMINOPHEN 500 MG TABLET PO ONE (21:45)
--- NOTE | 2021-09-27 21:47 | PHYS DOC ---
Past History Past Medical History: UTI Past Surgical History: Other Additional Past Surgical Histo: dental surgery Smoking: Non-smoker Alcohol Use: None Drug Use: None Adult General Chief Complaint Chief Complaint: LOWER EXT PAIN HPI HPI Patient is a 56-year-old female presents with right ankle pain that has been going on for some time, 5 out of 10, dull and achy in nature. Denies any recent travels, traumas, illnesses, fevers, chest pain, shortness of breath, abdominal pain, nausea, vomiting. Denies any numbness/weakness/tingling. States that she does have some wounds on her legs bilaterally that she wraps [facility] her primary care physician showed her how to do that as she gets bilateral lower leg swelling. Denies any recent dyspnea on exertion, orthopnea, PND. Review of Systems Review of Systems Review of systems otherwise unremarkable except noted in HPI Allergies Allergies Allergies Coded Allergies Type Severity Reaction Last Updated Verified No Known Drug Allergies 11/02/20 No Physical Exam Physical Exam Constitutional: Well developed, well nourished, no acute distress, non-toxic appearance. [] HENT: Normocephalic, atraumatic, bilateral external ears normal, oropharynx moist, no oral exudates, nose normal. [] Eyes: conjunctiva normal, no discharge. [] Neck: Normal range of motion, no tenderness, supple, no stridor. [] Cardiovascular:Heart rate regular rhythm, no murmur [] Lungs & Thorax: Bilateral breath sounds clear to auscultation [] Abdomen: Bowel sounds normal, soft, no tenderness, no masses, no pulsatile masses. [] Skin: Warm, dry, no erythema, no rash. [] Back: No tenderness, no CVA tenderness. [] Extremities: No tenderness, no cyanosis, no clubbing, ROM intact, no edema. [] Neurologic: Alert and oriented X 3, normal motor function, normal sensory function, no focal deficits noted. [] Psychologic: Affect normal, judgement normal, mood normal. [] Current Patient Data Vital Signs Vital Signs Date Time Temp Pulse Resp B/P (MAP) Pulse Ox O2 Delivery O2 Flow Rate FiO2 09/27/21 21:30 98.3 107 20 115/83 (94) 99 Room Air EKG EKG [] Radiology/Procedures Radiology/Procedures [] Heart Score C/O Chest Pain: No Risk Factors: Risk Factors: DM, Current or recent (<one month) smoker, HTN, HLP, family history of CAD, obesity. Risk Scores: Risk Factors: DM, Current or recent (<one month) smoker, HTN, HLP, family history of CAD, obesity. Course & Med Decision Making Course & Med Decision Making Patient is a 56-year-old female who presents with a chief complaint of right ankle pain Vital signs notable for tachycardia. Physical exam noted above. Given Tylenol and ice pack. Patient has likely venous insufficiency with some bilateral lower extremity edema. Neurovascular exam intact. There are a few spots were her edema is weeping through. Patient states that she has been told to keep them wrapped and elevated. Started patient on Keflex due to concern for a spot that has some warmth and weeping. Given patient new clean Gustavo wraps, wrap for her and showed her how to wrap appropriately. Advised to follow-up with primary care physician on Wednesday. Gave return precautions to the ED. Patient grateful, verbalized understanding and agree with plan of discharge. [] Dragon Disclaimer Dragon Disclaimer This electronic medical record was generated, in whole or in part, using a voice recognition dictation system. Departure Departure: Impression: Primary Impression: Venous insufficiency Additional Impression: Cellulitis Disposition: HOME / SELF CARE / HOMELESS Condition: GOOD Referrals: PEDRO PARDO MD (PCP) Patient Instructions: Venous Stasis and Chronic Venous Insufficiency Additional Instructions: Thank you for coming into the emergency department tonight and allowing us to take care of you. Please read the attached information carefully to go back over the things we discussed. Please keep your legs wrapped and try to keep them elevated as much as possible as we discussed. You can use Tylenol home as needed. Please take your antibiotics as prescribed and until gone. Please follow-up Wednesday with your primary care physician to discuss your ED visit and set up a follow-up appointment as soon as possible. Scripts Cephalexin (KEFLEX) 500 Mg Capsule 1 CAP PO BID for cellulitis, #30 CAP Prov: MIAN CARDOZA MD 09/27/21 Problem Qualifiers MIAN CARDOZA MD Sep 27, 2021 21:47
[2021-09-27] MEDS ORDERED: CEPHALEXIN 250 MG CAPSULE PO ONE (22:15)
[2021-09-27] MEDS ORDERED: CEPH500C PO (22:15)
[2021-09-27] MEDS ORDERED: oxyCODONE IR 5 MG TABLET PO ONE (22:30)
== END 2021-09-27 22:50 | disposition home or self-care (01) ==
LOC: ER 20:21
DX: I87.2 Venous insufficiency (chronic) (peripheral) (principal); L03.90 Cellulitis, unspecified; Z87.440 Personal history of urinary (tract) infections
CPT/HCPCS: 99284

== ENCOUNTER 2021-10-29 21:30 | Emergency (ER) | payer MEDICARE, OTHER ==
[~2021-10-29] VITALS: Ht 157.5 cm; Wt 113.0 kg
[~2021-10-29 21:30] MED LIST changes: +CEPH500C PO
[2021-10-30 00:32] LABS: BILIRUBIN,URINE NEG (NEG); CLARITY,URINE CLEAR; COLOR,URINE YELLOW; GLUCOSE,URINE >=1000 mg/dL (NEG)
[2021-10-30 00:33] LABS: BACTERIA,URINE FEW /HPF (0-FEW); NITRITE,URINE NEG (NEG); SQUAMOUS EPITHELIAL CELL,UR OCC /LPF; UROBILINOGEN,URINE 0.2 mg/dL (0.2 mg/dL)
[2021-10-30 01:35] VITALS: BP 111/51
--- NOTE | 2021-10-30 06:17 | PHYS DOC ---
Past History Past Medical History: UTI Additional Past Medical Histor: cellulitis Past Surgical History: No Surgical History Additional Past Surgical Histo: dental surgery Smoking: Non-smoker Alcohol Use: None Drug Use: None General Adult EDM: Chief Complaint: cellulitis HPI: HPI: 56-year-old female presents with bilateral lower leg sores. The patient originally came to the emergency room for a vaginal problem but did not tell me anything about her vagina. She only complains of sores on her bilateral lower legs. She does not know how long they have been there she has not seen a doctor for them previously. She states that they hurt and that they are draining. She is not sure if she has had a fever. She walks around barefoot all the time. Review of Systems: Review of Systems: Constitutional: Denies fever or chills Eyes: Denies change in visual acuity HENT: Denies nasal congestion or sore throat Respiratory: Denies cough or shortness of breath Cardiovascular: Denies chest pain or edema GI: Denies abdominal pain, nausea, vomiting, bloody stools or diarrhea : Denies dysuria Musculoskeletal: Denies back pain or joint pain Integument: Cellulitis bilateral lower legs Neurologic: Denies headache, focal weakness or sensory changes Endocrine: Denies polyuria or polydipsia Lymphatic: Denies swollen glands Psychiatric: Denies depression or anxiety Current Medications: Current Meds: Current Medications Medications (Trade) Dose Ordered Sig/Fredy Start Time Stop Time Status Last Admin Dose Admin Piperacillin Sod/ Tazobactam Sod 3.375 gm/Sodium Chloride 50 ml @ 100 mls/hr 1X ONCE 10/30/21 06:15 10/30/21 06:44 UNV Sodium Chloride 1,000 ml @ 1,000 mls/hr 1X ONCE 10/30/21 06:15 10/30/21 07:14 UNV Allergies: Allergies: Allergies Coded Allergies Type Severity Reaction Last Updated Verified No Known Drug Allergies 11/02/20 No Physical Exam: PE: Constitutional: Well developed, well nourished, morbidly obese, disheveled no acute distress. [] HENT: Normocephalic, atraumatic, bilateral external ears normal, oropharynx moist, no oral exudates, nose normal. [] Eyes: PERRLA, EOMI, conjunctiva normal, no discharge. [] Neck: Normal range of motion, no tenderness, supple, no stridor. [] Cardiovascular:Heart rate regular rhythm, no murmur [] Lungs & Thorax: Bilateral breath sounds clear to auscultation [] Abdomen: Bowel sounds normal, soft, no tenderness, no masses, no pulsatile mass es. [] Skin: Erythematous, warm to the touch bilateral lower extremities with large areas of crusting and weeping. Feet covered in dirty substance. [] Back: No tenderness, no CVA tenderness. [] Extremities: no cyanosis, no clubbing, ROM intact. [] Neurologic: Alert and oriented X 3, normal motor function, normal sensory function, no focal deficits noted. [] Psychologic: Affect normal, judgement normal, mood normal. [] Current Patient Data: Labs: Laboratory Tests Test 10/29/21 22:16 Urine Collection Type Unknown Urine Color Yellow Urine Clarity Clear Urine pH 5.5 Urine Specific [place] 1.010 Urine Protein Neg (NEG-TRACE) Urine Glucose (UA) >=1000 mg/dL (NEG) Urine Ketones (Stick) 15 mg/dL (NEG) Urine Blood Small (NEG) Urine Nitrite Neg (NEG) Urine Bilirubin Neg (NEG) Urine Urobilinogen Dipstick 0.2 mg/dL (0.2 mg/dL) Urine Leukocyte Esterase Trace (NEG) Urine RBC 3-5 /HPF (0-2) Urine WBC 5-10 /HPF (0-4) Urine Squamous Epithelial Cells Occ /LPF Urine Bacteria Few /HPF (0-FEW) Vital Signs: Vital Signs Date Time Temp Pulse Resp B/P (MAP) Pulse Ox O2 Delivery O2 Flow Rate FiO2 10/30/21 01:35 97.6 111 20 111/51 (71) 98 Room Air EKG: EKG: [] Radiology/Procedures: Radiology/Procedures: [] Heart Score: C/O Chest Pain: N/A Risk Factors: Risk Factors: DM, Current or recent (<one month) smoker, HTN, HLP, family history of CAD, obesity. Risk Scores: Score 0 - 3: 2.5% MACE over next 6 weeks - Discharge Home Score 4 - 6: 20.3% MACE over next 6 weeks - Admit for Clinical Observation Score 7 - 10: 72.7% MACE over next 6 weeks - Early Invasive Strategies Course & Med Decision Making: Course & Med Decision Making Pertinent Labs and Imaging studies reviewed. (See chart for details) Patient CBC is unremarkable. Her glucose is 299 with a normal anion gap. I have advised the patient to discuss her elevated blood sugar with her primary physician. I have given her Zosyn in the ED for her lower extremity cellulitis. I will discharge her on clindamycin. This seems most likely to be a Strept ococcus. [] Dragon Disclaimer: Dragon Disclaimer: This electronic medical record was generated, in whole or in part, using a voice recognition dictation system. Departure Departure: Impression: Primary Impression: Cellulitis of leg, left Additional Impression: Cellulitis of leg, right Disposition: HOME / SELF CARE / HOMELESS Condition: STABLE Referrals: PEDRO PARDO MD (PCP) Patient Instructions: Cellulitis, [id number] Scripts Clindamycin Hcl (CLINDAMYCIN HCL) 300 Mg Capsule 1 CAP PO TID for cellulitis, #21 CAP Prov: AUSTIN HATCH DO 10/30/21 AUSTIN HATCH DO Oct 30, 2021 06:17
[2021-10-30] MEDS ORDERED: PIPERACILLIN/TAZOBACTAM 3.375 GM in IV NORMAL SALINE 50ML 50 ML IV ONE (07:00)
[2021-10-30] MEDS ORDERED: IV NORMAL SALINE 1,000ML 1,000 ML IV ONE (07:00)
[2021-10-30] MEDS ORDERED: IV NORMAL SALINE 50ML 50 ML ONE (07:51)
[2021-10-30] MEDS ORDERED: PIPERACILLIN/TAZOBACTAM 3.375 GM VIAL IV ONE (07:52)
[2021-10-30 08:01] LABS: BASO % 0 % (0-3); CALCIUM 9.8 mg/dL (8.5-10.1); CREATININE 0.8 mg/dL (0.6-1.0); EOS # 0.2 x10^3/uL (0.0-0.7); EOS % 2 % (0-3); GFR 74.7; HEMOGLOBIN 13.5 g/dL (12.0-15.5); LYMPH # 1.3 x10^3/uL (1.0-4.8); LYMPH % 18 % (24-48); MEAN CORPUSCULAR HEMOGLOBIN 30 pg (25-35); MEAN CORPUSCULAR HGB CONC 34 g/dL (31-37); MEAN CORPUSCULAR VOLUME 87 fL (79-100); MONO # 0.6 x10^3/uL (0.0-1.1); MONO % 8 % (0-9); NEUT # 5.3 x10^3uL (1.8-7.7); NEUT % 72 % (31-73); PLATELET COUNT 315 x10^3/uL (140-400); RED BLOOD COUNT 4.58 x10^6/uL (3.50-5.40); RED CELL DISTRIBUTION WIDTH 13.2 % (11.5-14.5); WHITE BLOOD COUNT 7.4 x10^3/uL (4.0-11.0)
[2021-10-30 08:07] LABS: ALBUMIN 2.9 g/dL (3.4-5.0); ALBUMIN/GLOBULIN RATIO 0.7 (1.0-1.7); TOTAL BILIRUBIN 0.4 mg/dL (0.2-1.0); TOTAL PROTEIN 7.2 g/dL (6.4-8.2)
[2021-10-30] MEDS ORDERED: CLIN-95 PO (08:42)
== END 2021-10-30 09:43 | disposition home or self-care (01) ==
LOC: ER 21:30
DX: L03.116 Cellulitis of left lower limb (principal); L03.115 Cellulitis of right lower limb; E66.01 Morbid (severe) obesity due to excess calories; Z87.440 Personal history of urinary (tract) infections; Z68.42 Body mass index [BMI] 45.0-49.9, adult
CPT/HCPCS: 36415; 80053; 81001; 83605; 85025; 87040; 87086; 96365; 99284; J2543; J7030

== ENCOUNTER 2022-01-29 15:48 | Emergency (ER) | payer MEDICARE, OTHER ==
[~2022-01-29] VITALS: Ht 157.5 cm; Wt 113.0 kg
[~2022-01-29 15:48] MED LIST changes: +CLIN-95 PO
[2022-01-29] MEDS ORDERED: ACETAMINOPHEN 500 MG TABLET PO ONE (16:30)
--- NOTE | 2022-01-29 17:56 | PHYS DOC ---
Past History Past Medical History: UTI Additional Past Medical Histor: cellulitis (KIMANI VALDERRAMA) Past Surgical History: Other Additional Past Surgical Histo: dental surgery (KIMANI VALDERRAMA) Smoking: Non-smoker Alcohol Use: None Drug Use: None (KIMANI VALDERRAMA) General Adult EDM: Chief Complaint: LOWER EXT PAIN HPI: HPI: Patient is a 56 year old female who presents with left knee and left wrist pain after a mechanical fall. Patient states she was carrying some groceries out to the car from [facility] when she stumbled and her left ankle rolled. She then fell onto her left knee and her outstretched hand. Patient denies other complaints and injuries at this time. (KIMANI VALDERRAMA) Review of Systems: Review of Systems: ROS negative or noncontributory except as mentioned in HPI. (KIMANI VALDERRAMA) Current Medications: Current Meds: Current Medications Medications (Trade) Dose Ordered Sig/Fredy Start Time Stop Time Status Last Admin Dose Admin Acetaminophen (Tylenol) 1,000 mg 1X ONCE 01/29/22 16:30 01/29/22 16:31 DC 01/29/22 16:30 1,000 MG (KIMANI VALDERARMA) Allergies: Allergies: Allergies Coded Allergies Type Severity Reaction Last Updated Verified No Known Drug Allergies 11/02/20 No (KIMANI VALDERRAMA) Physical Exam: PE: Constitutional: Obese, no acute distress, non-toxic appearance. HENT: Normocephalic, atraumatic, bilateral external ears normal, nose normal. Eyes: EOMI, conjunctiva normal, no discharge. Neck: Normal range of motion, no stridor. Skin: Superficial abrasion noted to left knee. Skin otherwise warm, dry, no erythema, no rash. Back: No depth, no tenderness. Extremities: Mild tenderness knees and left wrist, no cyanosis, no clubbing, ROM intact, no edema. Neurologic: Alert and oriented, normal motor function, normal sensory function, no focal deficits noted. (KIMANI VALDERRAMA) Current Patient Data: Vital Signs: Vital Signs Date Time Temp Pulse Resp B/P (MAP) Pulse Ox O2 Delivery O2 Flow Rate FiO2 01/29/22 18:45 86 16 120/76 (91) 98 Room Air 01/29/22 16:06 98.5 86 16 123/76 (92) 98 Room Air (KIMANI VALDERRAMA) Radiology/Procedures: Radiology/Procedures: PROCEDURE: WRIST 3V LEFT Left wrist 3 views. HISTORY: Fall, pain 3 views were taken of the left wrist. There is not evidence of an acute fracture or osseous abnormality. IMPRESSION: 1. No acute fracture left wrist. Electronically signed by: Maldonado Bo MD (01/29/2022 6:12 PM) [facility] PROCEDURE: KNEE LEFT 4V Bilateral ankles 3 views each, left knee 3 views. HISTORY: Fall with pain Right ankle 3 views were taken of the right ankle. There is not evidence of an acute fracture. There is soft tissue swelling. Left ankle 3 views were taken of the left ankle. There is mild arthritis at the ankle with spurring. There is no acute fracture. Left knee 3 views were taken of the left knee. There is mild hypertrophic spurring from arthritis. There is no fracture or acute osseous abnormality. IMPRESSION: 1. Mild arthritis left knee. 2. No fracture noted in the left knee. 3. No acute fracture left ankle. 4. No acute fracture right ankle. Electronically signed by: Maldonado Bo MD (01/29/2022 6:15 PM) [facility] (KIMANI VALDERRAMA) Heart Score: C/O Chest Pain: No (KIMANI VALDERRAMA) Course & Med Decision Making: Course & Med Decision Making Pertinent Labs and Imaging studies reviewed. (See chart for details) (KIMANI VALDERRAMA) Dragon Disclaimer: Dragon Disclaimer: This electronic medical record was generated, in whole or in part, using a voice recognition dictation system. (KIMANI VALDERRAMA) Attending Co-Sign The patient was seen and interviewed as well as examined at the bedside. The chart was reviewed. The case was discussed. Agree with the plan of care. (AUSTIN HATCH DO) Departure Departure: Impression: Primary Impression: Fall from standing Qualified Codes: W19.XXXA - Unspecified fall, initial encounter Additional Impression: Multiple contusions Disposition: HOME / SELF CARE / HOMELESS Condition: STABLE Referrals: WENDI MENCHACA APRN (PCP) Patient Instructions: Contusion, [id number], RICE - Routine Care for Injuries, [id number] Additional Instructions: EMERGENCY DEPARTMENT GENERAL DISCHARGE INSTRUCTIONS Thank you for coming to [facility] (ED) today and trusting us with you care. We trust that you had a positive experience in our Emergency Department. If you wish to speak to the department management, you may call the director at [phone]. YOUR FOLLOW UP INSTRUCTIONS ARE FOLLOWS: 1. Follow up with your primary care doctor. If you do not have a primary doctor, please ask for a resource list of physicians or clinics that may be able to assist you with follow up care. 2. The emergency provider has interpreted your imaging studies, if any were ordered. The radiology certified medical coding specialist also reviewed them. If there is a change in the findings, you will be notified in 48 hours when at all possible. 3. If a lab test or culture has been done, your results will be reviewed and you will be notified if you need a change in treatment. 4. Follow instructions verbalized to you and refer to the printouts if needed. ADDITIONAL INSTRUCTIONS AND INFORMATION: 1. Your care today has been supervised by a physician who is specially trained in emergency care. Many problems require more than one evaluation for a complete diagnosis and treatment. We recommend that you schedule your follow up appointment as recommended to ensure complete treatment of you illness or injury. If you are unable to obtain follow up care and continue to have a problem, or if your condition worsens, we recommend that you return to the ED. 2. We are not able to safely determine your condition over the phone nor are we able to give sound medical advice over the phone. For these safety reasons, if you call for medical advice we will ask you to come to the ED for further evaluation. 3. If you have any questions regarding these discharge instructions please call the ED at [phone]. SAFETY INFORMATION: In the interest of safety, wellness, and injury prevention; we encourage you to wear your seat belt, if you smoke; quite smoking, and we encourage family to use a protective helmet for bicycling and other sporting events that present an increased risk for head injury. IF YOUR SYMPTOMS WORSEN OR NEW SYMPTOMS DEVELOP, OR YOU HAVE CONCERNS ABOUT YOUR CONDITION; OR IF YOUR CONDITION WORSENS WHILE YOU ARE WAITING FOR YOUR FOLLOW UP APPOINTMENT; EITHER CONTACT YOUR PRIMARY CARE DOCTOR, THE PHYSICIAN WHOSE NAME AND NUMBER YOU WERE GIVEN, OR RETURN TO THE ED IMMEDIATELY. KIMANI VALDERRAMA Jan 29, 2022 17:56 AUSTIN HATCH DO Jan 30, 2022 05:24
--- NOTE | 2022-01-29 18:15 | RAD ---
Left wrist 3 views. HISTORY: Fall, pain 3 views were taken of the left wrist. There is not evidence of an acute fracture or osseous abnormali ty. IMPRESSION: 1. No acute fracture left wrist. Electronically signed by: Maldonado Bo MD (01/29/2022 6:12 PM) [facility]
--- NOTE | 2022-01-29 18:18 | RAD ---
Bilateral ankles 3 views each, left knee 3 views. HISTORY: Fall with pain Right ankle 3 views were taken of the right ankle. There is not evidence of an acute fracture. There is soft tiss ue swelling. Left ankle 3 views were taken of the left ankle. There is mild arthritis at the ankle with spurring. There is no acute fracture. Left knee 3 views were taken of the left knee. There is mild hypertrophic spurring from arthritis. There is no fracture or acute osseous abnormality. IMPRESSION: 1. Mild arthritis left knee. 2. No fracture noted in the left knee. 3. No acute fracture left ankle. 4. No acute fracture right ankle. Electronically signed by: Maldonado Bo MD (01/29/2022 6:15 PM) [facility]
[2022-01-29 18:45] VITALS: BP 120/76
== END 2022-01-29 18:45 | disposition home or self-care (01) ==
LOC: ER 15:48
DX: S60.212A Contusion of left wrist, initial encounter (principal); S80.02XA Contusion of left knee, initial encounter; Z87.440 Personal history of urinary (tract) infections; W18.39XA Other fall on same level, initial encounter; Y93.89 Activity, other specified; Y92.89 Other specified places as the place of occurrence of the external cause; Y99.8 Other external cause status
CPT/HCPCS: 73110; 73564; 99284; 73610-50